=== PATIENT | male | born 1975 | race Two or more races ===

== ENCOUNTER 2018-02-01 04:54 | Emergency (ER) | payer SELFPAY ==
[~2018-02-01] VITALS: Ht 167.6 cm; Wt 99.7 kg
[2018-02-01] MEDS ORDERED: ONDANSETRON ODT 4 MG PO ONE (05:30)
[2018-02-01] MEDS ORDERED: SODIUM CHLORIDE FLUSH 10ML SYR IVF ONE (05:30)
[2018-02-01] MEDS ORDERED: SODIUM CHLORIDE 0.9% 1,000ML IVBOLUS ONE (05:30)
[2018-02-01] MEDS ORDERED: KETOROLAC 30 MG/1 ML IVPush ONE (05:30)
[2018-02-01 05:56] LABS: BASOPHILS # (AUTO) 0.02 x10^3/uL (0-0.1); BASOPHILS % (AUTO) 0 % (0-1); EOSINOPHILS # (AUTO) 0.28 x10^3/uL (0-0.4); EOSINOPHILS % (AUTO) 3 % (1-7); LYMPHOCYTES # (AUTO) 1.78 x10^3/uL (1-3.4); LYMPHOCYTES % (AUTO) 22 % (22-44); MD NO; MEAN CORPUSCULAR HEMOGLOBIN 32.6 pg (27.5-34.5); MEAN CORPUSCULAR HGB CONC 34.6 g/dL (33.2-36.2); MEAN CORPUSCULAR VOLUME 94.1 fL (81-97); MEAN PLATELET VOLUME 9.9 fL (7.4-10.4); MONOCYTES # (AUTO) 0.87 x10^3/uL (0.2-0.8); MONOCYTES % (AUTO) 11 % (2-9); NEUTROPHILS # (AUTO) 5.17 x10^3/uL (1.8-6.8); NEUTROPHILS % (AUTO) 64 % (42-75); PLATELET COUNT 198 x10^3/uL (130-400); RED BLOOD COUNT 4.88 x10^6/uL (4.38-5.82)
[2018-02-01 06:08] LABS: ALANINE AMINOTRANSFERASE 44 U/L (12-78); ALBUMIN 3.7 g/dL (3.4-5.0); ANION GAP 10 mmol/L (5-15); CALCIUM 8.5 mg/dL (8.5-10.1); CHLORIDE 106 mmol/L (98-107); CREATININE 1.04 mg/dL (0.7-1.3)
[2018-02-01 06:10] LABS: ALKALINE PHOSPHATASE 102 U/L (45-117); BILIRUBIN,TOTAL 0.9 mg/dL (0.2-1.0); TOTAL PROTEIN 7.9 g/dL (6.4-8.2)
[2018-02-01 06:22] LABS: ACETONE, SERUM Trace (10mg/dL) mg/dL (Negative)
[2018-02-01 06:33] VITALS: BP 126/67
== END 2018-02-01 07:05 | disposition home or self-care (01) ==
LOC: ED 07:02
DX: E11.65 Type 2 diabetes mellitus with hyperglycemia (principal); Z76.0 Encounter for issue of repeat prescription
CPT/HCPCS: 36415; 71045; 80053; 82010; 82800; 82962; 85025; 96361; 96374; 99285; J1885; J7030; Q0162